=== PATIENT | female | born 1970 | race Caucasian/White ===

== ENCOUNTER 2018-11-25 14:54 | Emergency (ER) | payer BC ==
[2018-11-25 15:05] VITALS: BP 145/85
[2018-11-25] MEDS ORDERED: BUFFERED LIDOCAINE 10 ML SYRINGE SUBQ STA (15:57)
[2018-11-25] MEDS ORDERED: TETANUS/DIPHTHERIA/PERTUSSIS 0.5 ML SYRINGE IM ONE (16:27)
--- NOTE | 2018-11-25 16:30 | ED Physician Documentation ---
PD HPI HEAD INJURY - Stated complaint Stated Complaint: NOSE LAC - Chief complaint Chief Complaint: Laceration - History obtained from History obtained from: Patient, Family - History of Present Illness Mechanism of head injury: Blow Where head injury occurred: Home Timing - onset: Today Location of injury: Front Quality of pain: Pain Associated symptoms: No: LOC, AMS, Amnesia Symptoms improve with: Rest Symptoms worsen with: Palpation Similar symptoms before: Has not had sx before Recently seen: Not recently seen - Additional information Additional information: 48-year-old female was tried to remove a pipe from a hole in the ground and her yard and she smacked herself in the nasal bridge lacerating her nasal bridge. She did not have any loss of consciousness with this she is concerned about contamination of the wound and she is not up-to-date on her tetanus. Review of Systems Constitutional: denies: Fever Eyes: denies: Decreased vision Ears: denies: Ear pain Nose: denies: Rhinorrhea / runny nose, Congestion Respiratory: denies: Cough GI: denies: Vomiting Neurologic: reports: Head injury. denies: Headache, LOC PD PAST MEDICAL HISTORY - Past Medical History Cardiovascular: Hypertension - Allergies Allergies/Adverse Reactions: Allergies Allergy/AdvReac Type Severity Reaction Status Date / Time No Known Drug Allergies Allergy Verified 11/25/18 14:57 - Social History Does the pt smoke?: No Smoking Status: Never smoker PD ED PE NORMAL - Vitals Vital signs reviewed: Yes (hypertensive mild ) - General General: Alert and oriented X 3, No acute distress, Well developed/nourished - HEENT HEENT: PERRL, EOMI, Other (There is a 2cm L shaped laceration to the nasal bridge. The laceration does not inolve deeper sturctures and there is no FB seen. 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, No motor deficit, No sensory deficit, Normal speech Eye Opening: Spontaneous Motor: Obeys Commands Verbal: Oriented GCS Score: 15 - Psych Psych: Normal mood, Normal affect Results - Vitals Vitals: Vital Signs - 24 hr 11/25/18 14:57 Temperature 36.5 C Heart Rate 73 Respiratory 16 Rate Blood Pressure 145/85 H O2 Saturation 98 Oxygen O2 Source Room air Procedures - Laceration (location) nasal bridge Length in cm: 2 Wound type: Curved, Flap, Clean Neurovascular status: Sensory intact, Motor intact Anesthesia: Lidocaine 1%, With bicarb Wound Preparation: Hibiclens, Irrigated copiously NS, Wound explored, To the base Skin layer closure: Nylon, Interrupted, Size #-0 - enter number (6-0) Other: Patient tolerated well, No complications, Neurovascular intact, Dressing applied, Tetanus booster given Complexity: Simple PD MEDICAL DECISION MAKING - ED course Complexity details: considered differential, d/w patient, d/w family ED course: 48-year-old female the nasal bridge laceration is sutured tolerates this well is updated on her tetanus. Departure - Departure Disposition: 01 Home, Self Care Clinical Impression: Laceration of nose Qualifiers: Encounter type: initial encounter Qualified Code(s): S01.21XA - Laceration without foreign body of nose, initial encounter Condition: Stable Instructions: ED Laceration Facial Sutr Tape Follow-Up: [facility] [Provider Group] Comments: sutures should be removed in 5-7 days
== END 2018-11-25 16:43 | disposition home or self-care (01) ==
LOC: ED 14:54
DX: S01.21XA Laceration without foreign body of nose, initial encounter (principal); W22.8XXA Striking against or struck by other objects, initial encounter; Y93.H2 Activity, gardening and landscaping; Y92.007 Garden or yard of unspecified non-institutional (private) residence as the place of occurrence of the external cause; I10 Essential (primary) hypertension
CPT/HCPCS: 12011; 90471; 99282; 99283

== ENCOUNTER 2019-02-08 08:10 | Outpatient (CLI) | payer BC ==
[2019-02-08 08:38] LABS: BASOPHILS # (AUTO) 0.1 10^3/uL (0.0-0.1); BASOPHILS % (AUTO) 0.7 %; EOSINOPHILS # (AUTO) 0.2 10^3/uL (0.0-0.7); HGB - HEMOGLOBIN 13.7 g/dL (12.0-16.0); LYMPHOCYTES # (AUTO) 2.6 10^3/uL (1.5-3.5); LYMPHOCYTES % (AUTO) 34.8 %; MEAN CORPUSCULAR HEMOGLOBIN 29.7 pg (27.0-31.0); MEAN CORPUSCULAR HGB CONC 33.3 g/dL (32.0-36.0); MEAN CORPUSCULAR VOLUME 89.2 fL (81.0-99.0); MEAN PLATELET VOLUME 9.9 fL (7.9-10.8); MONOCYTES # (AUTO) 0.5 10^3/uL (0.0-1.0); MONOCYTES % (AUTO) 7.2 %; NEUTROPHILS # (AUTO) 4.1 10^3/uL (1.5-6.6); PLT - PLATELET COUNT 262 10^3/uL (130-450); RED BLOOD COUNT 4.62 10^6/uL (4.20-5.40); RED CELL DISTRIBUTION WIDTH 12.9 % (12.0-15.0); WHITE BLOOD COUNT 7.5 x10^3/uL (4.8-10.8)
[2019-02-08 09:13] LABS: ALBUMIN 4.3 g/dL (3.2-5.5); ALBUMIN/GLOBULIN RATIO 1.4 (1.0-2.2); ALKALINE PHOSPHATASE 71 IU/L (42-121); ALT ALANINE AMINOTRANSFERASE 71 IU/L (10-60); AST ASPARTATE AMINOTRANSFERASE 38 IU/L (10-42); BILIRUBIN,TOTAL 0.6 mg/dL (0.2-1.0); BUN - BLOOD UREA NITROGEN 15 mg/dL (6-20); CALCIUM 9.7 mg/dL (8.5-10.3); CARBON DIOXIDE - CO2 26 mmol/L (21-32); CHLORIDE 103 mmol/L (101-111); CHOL/HDL RATIO 4.5 (<4.4); CHOLESTEROL 241 mg/dL; CREATININE 0.6 mg/dL (0.4-1.0); GFR - MDRD 106 (>89); GLUCOSE 106 mg/dL (70-100); HDL CHOLESTEROL 53 mg/dL; LDL CHOLESTEROL,CALCULATED 165 mg/dL; LDL/HDL RATIO 3.1 (<4.4); SODIUM 141 mmol/L (135-145); TOTAL PROTEIN 7.4 g/dL (6.7-8.2); VLDL CHOLESTEROL 23 mg/dL
[2019-02-08 09:58] LABS: THYROID STIMULATING HORMONE 2.04 uIU/mL (0.34-5.60)
[2019-02-08 10:00] LABS: FREE T4 (FREE THYROXINE) 0.73 ng/dL (0.58-1.64)
[2019-02-08 16:23] LABS: HB2 TOTAL 13.9 g/dL; HEMOGLOBIN A1C 0.53 g/dL; HEMOGLOBIN A1C % 5.6 % (4.6-6.2)
== END 2019-02-08 08:11 | disposition home or self-care (01) ==
LOC: LAB 08:10
PROVIDERS: ATTEND Family Medicine
DX: I10 Essential (primary) hypertension (principal); E87.6 Hypokalemia
CPT/HCPCS: 36415; 80053; 80061; 83036; 83721; 83735; 84439; 84443; 84481; 85025

== ENCOUNTER 2019-03-27 08:25 | Outpatient (CLI) | payer BC | END 2019-03-27 08:26 | disposition home or self-care (01) | LOC: LAB 08:25 | PROVIDERS: ATTEND Family Medicine | DX: I10 Essential (primary) hypertension (principal) | CPT/HCPCS: 36415; 84132 ==

== ENCOUNTER 2019-12-14 16:16 | Emergency (ER) | payer BC ==
[2019-12-14] MEDS ORDERED: predniSONE 20 MG TABLET PO STA (16:33)
[2019-12-14] MEDS ORDERED: EPINEPHrine 1 MG/ML AMP IM STA (16:37)
--- NOTE | 2019-12-14 16:42 | ED Physician Documentation ---
History of Present Illness - Stated complaint Stated Complaint: ALLERGIC REACTION - Chief complaint Chief Complaint: Allergic Rx - History obtained from History obtained from: Patient, Family - History of Present Illness Timing: Today, How many minutes ago (45) Pain level max: 0 Pain level now: 0 - Additonal information Additional information: 49-year-old female with a history of bee sting allergy states that she was stung approximately 45 minutes ago. Since that time she has had increasing hives. Took Benadryl approximately 30 minutes ago. Continues to have itching. States that her breathing feels slightly difficult. Nothing makes it better or worse. Review of Systems Ten Systems: 10 systems reviewed and negative Constitutional: denies: Fever, Chills Nose: denies: Rhinorrhea / runny nose, Congestion Throat: denies: Sore throat Cardiac: denies: Chest pain / pressure Respiratory: denies: Cough GI: denies: Vomiting, Diarrhea : denies: Now EGA Musculoskeletal: denies: Neck pain, Back pain PD PAST MEDICAL HISTORY - Past Medical History Cardiovascular: Hypertension - Present Medications Home Medications: Ambulatory Orders Medication Instructions Recorded Confirmed EPINEPHrine [Epinephrine] 0.3 mg IJ ONCE PRN #2 auto.injct 12/14/19 predniSONE [Prednisone] 40 mg PO DAILY #10 tablet 12/14/19 - Allergies Allergies/Adverse Reactions: Allergies Allergy/AdvReac Type Severity Reaction Status Date / Time No Known Drug Allergies Allergy Verified 11/25/18 14:57 - Social History Does the pt smoke?: No Smoking Status: Never smoker PD ED PE NORMAL - Vitals Vital signs reviewed: Yes - General General: Alert and oriented X 3, No acute distress, Well developed/nourished - HEENT HEENT: PERRL, Moist mucous membranes, Pharynx benign - Neck Neck: Supple, no meningeal sign - Cardiac Cardiac: RRR, Strong equal pulses - Respiratory Respiratory: No respiratory distress, Clear bilaterally - Abdomen Abdomen: Soft, Non tender, Non distended - Derm Derm: Warm and dry, Other (Diffuse urticaria over the bilateral arms, chest, abdomen, legs, back.) - Extremities Extremities: No calf tenderness / cord - Neuro Neuro: Alert and oriented X 3 - Psych Psych: Normal mood, Normal affect Results - Vitals Vitals: Vital Signs - 24 hr 07/17/20 07/17/20 07/17/20 16:23 16:25 18:17 Temperature 36.8 C 36.5 C Heart Rate 81 78 86 Respiratory 16 78 H 23 Rate Blood Pressure 148/92 H 126/55 L 130/61 O2 Saturation 97 98 97 Oxygen O2 Source Room air PD MEDICAL DECISION MAKING - ED course Complexity details: reviewed results, re-evaluated patient, considered differential, d/w patient ED course: 49-year-old female presents to the emergency department with diffuse urticaria after a bee sting. She was ordered to be given 0.3 mg of IM epinephrine. The nurse accidentally roland up and gave 1 mg of IM epinephrine. Patient had no significant side effects from this. She was placed on the esters and emulsifiers supervisor and watched for approximately 2 hours after this was given. Hives resolved. No difficulty breathing. No chest pain. No palpitations. Patient's will be with her at home as well. We will prescribe prednisone for home and epinephrine pens. Patient counseled regarding signs and symptoms for which I believe and urgent re-evaluation would be necessary. Patient with good underst anding of and agreement to plan and is comfortable going home at this time This document was made in part using voice recognition software. While efforts are made to proofread this document, sound alike and grammatical errors may occur. Departure - Departure Disposition: 01 Home, Self Care Clinical Impression: Allergic reaction Qualifiers: Encounter type: initial encounter Qualified Code(s): T78.40XA - Allergy, unspecified, initial encounter Condition: Good Instructions: ED Bite Sting Insect Gen Allergic React Follow-Up: Hector Zavaleta MD [Primary Care Provider] - Within 1 week Prescriptions: EPINEPHrine [Epinephrine] 0.3 mg IJ ONCE PRN #2 auto.injct PRN Reason: Anaphylaxis predniSONE [Prednisone] 40 mg PO DAILY #10 tablet Comments: Return if you worsen. Follow up with your doctor for further care. If this happens again and you are having difficulty breathing, you should use the epinephrine pen. This will buy you time to get to the emergency department. You still need to be seen right away if you use the epinephrine pen. Discharge Date/Time: 12/14/19 18:22
[2019-12-14 18:17] VITALS: BP 130/61
== END 2019-12-14 18:22 | disposition home or self-care (01) ==
LOC: ED 16:16
DX: T63.441A Toxic effect of venom of bees, accidental (unintentional), initial encounter (principal); L50.0 Allergic urticaria; T44.5X1A Poisoning by predominantly beta-adrenoreceptor agonists, accidental (unintentional), initial encounter; Y92.538 Other ambulatory health services establishments as the place of occurrence of the external cause; I10 Essential (primary) hypertension; Z91.030 Bee allergy status
CPT/HCPCS: 96372; 99283; 99284; J7512

== ENCOUNTER 2020-01-31 16:18 | Emergency (ER) | payer BC ==
[2020-01-31] MEDS ORDERED: diphenhydrAMINE INJ 50 MG/ML VIAL IVP STA (16:38)
[2020-01-31] MEDS ORDERED: FAMOTIDINE 20 MG/2 ML SYRINGE IVP STA (16:38)
[2020-01-31] MEDS ORDERED: DEXAMETHASONE 10 MG/ML VIAL IVP STA (16:38)
--- NOTE | 2020-01-31 16:42 | ED Physician Documentation ---
History of Present Illness - Stated complaint Stated Complaint: ALLERGIC REACTION, INSECT STING - Chief complaint Chief Complaint: Allergic Rx - History obtained from History obtained from: Patient - Additonal information Additional information: Patient comes emergency department after giving herself an injection of epi at home for a bee sting allergy. Patient has a history of anaphylactic reaction to bee sting, and carries an EpiPen for this reason. She did recently have a bee sting a couple weeks ago and had no reaction. Her states he thinks the bee did not fully sting the patient. Today sting happened about 30 minutes before patient's arrival. She states she felt the bee sting her and immediately began to break out in urticaria. She also felt her face swelling. She states that the epi has seemed to make the urticaria better, but she does feel "funny", and also states that her chest feels a little bit tight. 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 No other complaints at this time. Review of Systems Ten Systems: 10 systems reviewed and negative Constitutional: reports: Reviewed and negative Eyes: reports: Reviewed and negative Ears: reports: Reviewed and negative Nose: reports: Reviewed and negative Throat: reports: Reviewed and negative Cardiac: reports: Reviewed and negative Respiratory: reports: Dyspnea GI: reports: Reviewed and negative : reports: Reviewed and negative Skin: reports: Rash Musculoskeletal: reports: Reviewed and negative Neurologic: reports: Reviewed and negative Psychiatric: reports: Reviewed and negative Endocrine: reports: Reviewed and negative Immunocompromised: reports: Reviewed and negative PD PAST MEDICAL HISTORY - Past Medical History Cardiovascular: Hypertension - Past Surgical History Past Surgical History: Yes /VIDEO SPECIALIST: Hysterectomy - Present Medications Home Medications: Ambulatory Orders Medication Instructions Recorded Confirmed EPINEPHrine [Epinephrine] 0.3 mg IJ ONCE PRN #2 auto.injct 12/14/19 predniSONE [Prednisone] 40 mg PO DAILY #10 tablet 12/14/19 EPINEPHrine [Epinephrine] 0.3 mg IJ ONCE PRN #1 auto.injct 01/31/20 Famotidine [Pepcid] 20 mg PO BID #4 tablet 01/31/20 predniSONE [Prednisone] 60 mg PO DAILY #6 tablet 01/31/20 - Allergies Allergies/Adverse Reactions: Allergies Allergy/AdvReac Type Severity Reaction Status Date / Time No Known Drug Allergies Allergy Verified 11/25/18 14:57 - Social History Does the pt smoke?: No Smoking Status: Never smoker Does the pt drink ETOH?: No Does the pt have substance abuse?: No - Immunizations Immunizations are current?: Yes PD ED PE NORMAL - Vitals Vital signs reviewed: Yes - General General: Alert and oriented X 3, No acute distress, Well developed/nourished - HEENT HEENT: Atraumatic, PERRL, EOMI, Moist mucous membranes, Pharynx benign (No oral pharyngeal edema.) - Neck Neck: Supple, no meningeal sign - Cardiac Cardiac: RRR, No murmur, Strong equal pulses - Respiratory Respiratory: No respiratory distress, Clear bilaterally - Abdomen Abdomen: Soft, Non tender, Non distended - Derm Derm: Warm and dry, Other (Patient has slightly erythematous skin over her trunk and upper extremities, as well as neck and face. Fine urticaria are noted diffusely over the patient's body in the same distribution.) - Extremities Extremities: No deformity, No edema, No calf tenderness / cord - Neuro Neuro: Alert and oriented X 3 - Psych Psych: Normal mood, Normal affect Results - Vitals Vitals: Oxygen O2 Source Room air - Rads (name of study) CXR Radiology: Final report received, EMP read indepedently, See rad report (NAD) PD MEDICAL DECISION MAKING - ED course Complexity details: reviewed results, re-evaluated patient, considered differential, d/w patient ED course: Patient was evaluated upon arrival in the emergency department immediately by myself. She was given IV doses of Decadron, Benadryl, and Pepcid. Her oxygen saturation was found to be hovering in the low 90s and occasionally even 89% on room air. However, the patient was breathing comfortably and speaking without difficulty. During the respiratory exam, when the patient took deep breaths in and out, her saturation immediately jumped up to 97% on room air. The patient's heart rate and blood pressure remained stable and normal throughout her stay. The patient was found to be feeling much better on reevaluation and her facial swelling and color was better. Her relaxed breathing a lot oxygen saturation on room air was found on room air. Patient reported feeling better and I felt she was stable for discharge. She does have 1 more EpiPen at home, but I will prescribe her a second 1 since she is at risk for anaphylactic reaction. I will also prescribe prednisone and Pepcid for her that she may take in addition to the Benadryl she already has at home. We have discussed home management of symptoms, as well as usual indications for return. Departure - Departure Disposition: 01 Home, Self Care Clinical Impression: Allergic reaction Qualifiers: Encounter type: initial encounter Qualified Code(s): T78.40XA - Allergy, unspecified, initial encounter Condition: Stable Instructions: ED Bite Sting Insect Gen Allergic React Prescriptions: EPINEPHrine [Epinephrine] 0.3 mg IJ ONCE PRN #1 auto.injct PRN Reason: Anaphylaxis Famotidine [Pepcid] 20 mg PO BID #4 tablet predniSONE [Prednisone] 60 mg PO DAILY #6 tablet Discharge Date/Time: 01/31/20 18:04
--- NOTE | 2020-01-31 17:11 | XRAY Report ---
PROCEDURE: Chest 1 View X-Ray INDICATIONS: dyspnea TECHNIQUE: One view of the chest was acquired. COMPARISON: None. FINDINGS: Surgical changes and devices: None. Lungs and pleura: No pleural effusions or pneumothorax. Lungs are clear. Mediastinum: Mediastinal contours appear normal. Heart size is normal. Bones and chest wall: No suspicious bony lesions. Overlying soft tissues appear unremarkable. IMPRESSION: No acute cardiopulmonary abnormality. Reviewed by: Johnnie Wallis MD on 01/31/2020 4:10 PM ROSSI Approved by: Johnnie Wallis MD on 01/31/2020 4:10 PM AKDT Station ID: [id number]
[2020-01-31 17:53] VITALS: BP 132/67
== END 2020-01-31 18:04 | disposition home or self-care (01) ==
LOC: ED 16:18
DX: T63.441A Toxic effect of venom of bees, accidental (unintentional), initial encounter (principal); R06.00 Dyspnea, unspecified; L50.0 Allergic urticaria; Z91.030 Bee allergy status; I10 Essential (primary) hypertension
CPT/HCPCS: 71045; 96374; 99283; 99284; J1200

== ENCOUNTER 2020-04-22 08:09 | Outpatient (CLI) | payer BC ==
[2020-04-22 08:27] LABS: BASOPHILS # (AUTO) 0.1 10^3/uL (0.0-0.1); BASOPHILS % (AUTO) 0.6 %; EOSINOPHILS # (AUTO) 0.1 10^3/uL (0.0-0.7); EOSINOPHILS % (AUTO) 1.7 %; HGB - HEMOGLOBIN 14.1 g/dL (12.0-16.0); LYMPHOCYTES % (AUTO) 35.9 %; MEAN CORPUSCULAR HEMOGLOBIN 29.7 pg (27.0-31.0); MEAN CORPUSCULAR HGB CONC 33.6 g/dL (32.0-36.0); MEAN CORPUSCULAR VOLUME 88.6 fL (81.0-99.0); MEAN PLATELET VOLUME 9.8 fL (7.9-10.8); MONOCYTES # (AUTO) 0.6 10^3/uL (0.0-1.0); MONOCYTES % (AUTO) 6.9 %; NEUTROPHILS # (AUTO) 4.6 10^3/uL (1.5-6.6); NEUTROPHILS % (AUTO) 54.7 %; PLT - PLATELET COUNT 263 10^3/uL (130-450); RED BLOOD COUNT 4.74 10^6/uL (4.20-5.40); RED CELL DISTRIBUTION WIDTH 12.4 % (12.0-15.0); WHITE BLOOD COUNT 8.4 x10^3/uL (4.8-10.8)
[2020-04-22 08:45] LABS: ALBUMIN 4.1 g/dL (3.2-5.5); ALBUMIN/GLOBULIN RATIO 1.4 (1.0-2.2); ALKALINE PHOSPHATASE 70 IU/L (42-121); ALT ALANINE AMINOTRANSFERASE 36 IU/L (10-60); AST ASPARTATE AMINOTRANSFERASE 23 IU/L (10-42); BILIRUBIN,TOTAL 0.7 mg/dL (0.2-1.0); BUN - BLOOD UREA NITROGEN 16 mg/dL (6-20); CALCIUM 9.2 mg/dL (8.5-10.3); CARBON DIOXIDE - CO2 22 mmol/L (21-32); CHLORIDE 105 mmol/L (101-111); CHOL/HDL RATIO 4.1 (<4.4); CHOLESTEROL 215 mg/dL; CREATININE 0.6 mg/dL (0.4-1.0); GLUCOSE 96 mg/dL (70-100); HDL CHOLESTEROL 53 mg/dL; LDL CHOLESTEROL,CALCULATED 136 mg/dL; LDL/HDL RATIO 2.6 (<4.4); SODIUM 139 mmol/L (135-145); VLDL CHOLESTEROL 26 mg/dL
[2020-04-22 12:02] LABS: HEMOGLOBIN A1c% 5.5 % (4.27-6.07)
== END 2020-04-22 08:10 | disposition home or self-care (01) ==
LOC: LAB 08:09
PROVIDERS: ATTEND Family Medicine
DX: I10 Essential (primary) hypertension (principal); R73.01 Impaired fasting glucose
CPT/HCPCS: 36415; 80053; 80061; 83036; 83721; 84443; 85025

== ENCOUNTER 2021-06-11 09:06 | Outpatient (CLI) | payer BC ==
--- NOTE | 2021-06-19 09:58 | Mammography Report ---
BILATERAL DIGITAL SCREENING MAMMOGRAM 3D/2D: 06/11/2021 CLINICAL: Routine screening. No prior exams were available for comparison. The tissue of both breasts is heterogeneously dense. T his may lower the sensitivity of mammography. No significant masses, calcifications, or other findings are seen in either breast. IMPRESSION: NEGATIVE There is no mammographic evidence of malignancy. A 1 year screening mammogram is recommended. This exam was interpreted at Station ID: [id number]. NOTE: For mammograms, a report in lay terms will be sent to the patient. Approximately 15% of breast malignancies will not be visualized mammographically. In the management of a palpable breast mass, a negative mammogram must not discourage biopsy of a clinically suspicious lesion. Electronically Signed By: Vincent Coronado M.D. ddamber/amer[place]:06/18/2021 08:29:51 ACR BI-RADS Category 1: Negative 3341F PARENCHYMAL PATTERN: (D) - The breast(s) demonstrate(s) heterogeneously dense fibroglandular paranton kerns. BI-RADS CATEGORY: (1) - 1 RECOMMENDATION: (ANNUAL) - Recommend routine annual screening mammography. [id number] 1 year screening LATERALITY: (B)
== END 2021-06-11 09:07 | disposition home or self-care (01) ==
LOC: DI.N 09:06
DX: Z12.31 Encounter for screening mammogram for malignant neoplasm of breast (principal)

== ENCOUNTER 2021-06-18 08:37 | Outpatient (CLI) | payer BC ==
[2021-06-18 09:07] LABS: BASOPHILS # (AUTO) 0.1 10^3/uL (0.0-0.1); BASOPHILS % (AUTO) 0.6 %; EOSINOPHILS # (AUTO) 0.1 10^3/uL (0.0-0.7); EOSINOPHILS % (AUTO) 1.6 %; HCT - HEMATOCRIT 43.2 % (37.0-47.0); HGB - HEMOGLOBIN 14.2 g/dL (12.0-16.0); LYMPHOCYTES # (AUTO) 2.9 10^3/uL (1.5-3.5); LYMPHOCYTES % (AUTO) 35.9 %; MEAN CORPUSCULAR HEMOGLOBIN 28.7 pg (27.0-31.0); MEAN CORPUSCULAR HGB CONC 32.9 g/dL (32.0-36.0); MEAN CORPUSCULAR VOLUME 87.4 fL (81.0-99.0); MEAN PLATELET VOLUME 9.5 fL (7.9-10.8); MONOCYTES # (AUTO) 0.6 10^3/uL (0.0-1.0); MONOCYTES % (AUTO) 7.2 %; NEUTROPHILS # (AUTO) 4.4 10^3/uL (1.5-6.6); NEUTROPHILS % (AUTO) 54.5 %; PLT - PLATELET COUNT 288 10^3/uL (130-450); RED BLOOD COUNT 4.94 10^6/uL (4.20-5.40); RED CELL DISTRIBUTION WIDTH 12.9 % (12.0-15.0); WHITE BLOOD COUNT 8.1 x10^3/uL (4.8-10.8)
[2021-06-18 09:36] LABS: ALBUMIN 4.3 g/dL (3.2-5.5); ALBUMIN/GLOBULIN RATIO 1.4 (1.0-2.2); ALKALINE PHOSPHATASE 75 IU/L (42-121); ALT ALANINE AMINOTRANSFERASE 54 IU/L (10-60); AST ASPARTATE AMINOTRANSFERASE 30 IU/L (10-42); BILIRUBIN,TOTAL 0.7 mg/dL (0.2-1.0); BUN - BLOOD UREA NITROGEN 15 mg/dL (6-20); CALCIUM 9.5 mg/dL (8.5-10.3); CARBON DIOXIDE - CO2 23 mmol/L (21-32); CHLORIDE 106 mmol/L (101-111); CHOL/HDL RATIO 5.2 (<4.4); CHOLESTEROL 238 mg/dL; CREATININE 0.6 mg/dL (0.4-1.0); GFR - MDRD 105 (>89); GLUCOSE 100 mg/dL (70-100); HDL CHOLESTEROL 46 mg/dL; LDL CHOLESTEROL,CALCULATED 165 mg/dL; LDL/HDL RATIO 3.6 (<4.4); POTASSIUM 3.6 mmol/L (3.5-5.0); SODIUM 140 mmol/L (135-145); TOTAL PROTEIN 7.3 g/dL (6.7-8.2); TRIGLYCERIDES 137 mg/dL; VLDL CHOLESTEROL 27 mg/dL
[2021-06-18 09:40] LABS: THYROID STIMULATING HORMONE 2.06 uIU/mL (0.34-5.60)
[2021-06-18 09:43] LABS: FREE T4 (FREE THYROXINE) 0.85 ng/dL (0.58-1.64)
== END 2021-06-18 08:38 | disposition home or self-care (01) ==
LOC: LAB 08:37
PROVIDERS: ATTEND Physician Assistant Medical
DX: Z00.00 Encounter for general adult medical examination without abnormal findings (principal)
CPT/HCPCS: 36415; 80053; 80061; 83721; 84439; 84443; 85025

== ENCOUNTER 2023-12-07 09:54 | Outpatient (CLI) | payer OTHER ==
--- NOTE | 2023-12-08 10:40 | Mammography Report ---
BILATERAL DIGITAL DIAGNOSTIC MAMMOGRAM 3D/2D WITH SPOT COMPRESSION: 12/07/2023 CLINICAL: Right skin changes at areola. Left focal pain and skin redness. Comparison is made to exam dated: 06/11/2021 mammogram - [facility]. Both breasts are heterogeneously dense, which may obscure small masses (category c / 51-75% glandular tissue). No significant masses, calcifications, or other findings are seen in either breast. Specifically, no finding to correspond to the patient's left breast pain or right breast skin dimpling. Mammograms a re otherwise stable. IMPRESSION: INCOMPLETE: NEEDS ADDITIONAL IMAGING EVALUATION Bilateral mammograms are stable. There is no abnormality seen in the right breast to correspond with the skin retraction/ dimpling in the sub-areolar depth. There is no abnormality seen in the left breast to correspond with the pain a nd redness in the sub-areolar depth. Ultrasound is recommended for full evaluation of this area. Bilateral breast ultrasound was performed immediately following this exam. Based on the Tyrer Cuzick model (a risk assessment model) the patient's lifetime risk is 17.6% and he r 10 year risk is 5.6%. According to the ACR, ACS, and NCCN guidelines, an annual breast MRI exam linda ng with mammogram is recommended if the patient's lifetime risk is 20% or greater. This exam was interpreted at Station ID: [id number]. NOTE: For mammograms, a report in lay terms will be sent to the patient. Approximately 15% of breast malignancies will not be visualized mammographically. In the management of a palpable breast mass, a negative mammogram must not discourage biopsy of a clinically suspicious lesion. Electronically Signed By: Elvira hudson/:12/07/2023 11:02:51 ACR BI-RADS Category 0: Incomplete 3340F PARENCHYMAL PATTERN: (D) - The breast(s) demonstrate(s) heterogeneously dense fibroglandular paranton kerns. BI-RADS CATEGORY: (0) - 0 Ultrasound [id number] Immediate follow-up LATERALITY: (B)
--- NOTE | 2023-12-08 10:40 | Ultrasound Report ---
LIMITED ULTRASOUND OF RIGHT BREAST: 12/07/2023 CLINICAL: Patient returns for a 6 month follow up of bilateral breasts. Comparison is made to exams dated: 12/07/2023 ultrasound, 12/07/2023 mammogram, and 06/11/2021 mammogra [facility]. Color flow and real-time ultrasound of the right breast 2 o'clock region were performed. Sotelo scale images of the real-time examination were reviewed. There is a benign area of echogenic fibroglandular tissue in the right breast at 2 o'clock in the ret roareolar region. There is no suspicious shadow, mass effect or skin tethering. This is immediately subjacent to the skin dimpling. There are other similar findings in the area. Color flow imaging dem onstrates that there is no vascularity present. IMPRESSION: BENIGN There is no sonographic evidence of malignancy. The area of skin dimpling in the right breast most likely is overlying a focus or fat necrosis, but i s non-specific, and the tissue in the area appears benign. Return to annual mammogram screening schedule is recommended. This exam was interpreted at Station ID: [id number]. Electronically Signed By: Elvira hudson/:12/07/2023 12:13:04 letter sent: No_Letter Ultrasound BI-RADS: 2 Benign BI-RADS CATEGORY: (2) - 2 Mammogram [id number] return to screening LATERALITY: (B)
--- NOTE | 2023-12-08 10:40 | Ultrasound Report ---
LIMITED ULTRASOUND OF LEFT BREAST: 12/07/2023 CLINICAL: Focal left breast pain. Comparison is made to exams dated: 12/07/2023 mammogram and 06/11/2021 mammogram - [facility]. Color flow and real-time ultrasound of the left breast 9 o'clock region were performed. Sotelo scale images of the real-time examination were reviewed. No significant abnormalities were seen sonographically in the left breast. Specifically, no finding to explain the patient's pain and redness. IMPRESSION: NEGATIVE There is no sonographic correlate to the patient's pain and no evidence of malignancy. No sonographi c findings of mastitis. Return to annual mammogram screening schedule is recommended. Findings and recommendations were conveyed to the patient at time of exam. This exam was interpreted at Station ID: [id number]. Electronically Signed By: Elvira hudson/:12/07/2023 12:13:58 letter sent: No_Letter Ultrasound BI-RADS: 1 Negative BI-RADS CATEGORY: (1) - 1 Mammogram [id number] return to screening LATERALITY: (B)
== END 2023-12-07 09:55 | disposition home or self-care (01) ==
LOC: DI 09:54
PROVIDERS: ATTEND Student in an Organized Health Care Education/Training Program
DX: N64.4 Mastodynia (principal); R92.333 Mammographic heterogeneous density, bilateral breasts